=== PATIENT | female | born 2000 | race Caucasian/White ===

== ENCOUNTER 2021-01-03 07:11 | Inpatient (IN) | payer BC ==
[2021-01-03] MEDS ORDERED: hydrALAZINE 20 MG/ML VIAL SLOW IVP PRN ×2 (09:29→22:45)
[2021-01-03] MEDS ORDERED: Ondansetron PF 4 MG/2 ML Vial IVP PRN ×2 (09:29→22:45)
[2021-01-03] MEDS ORDERED: Lidocaine 1% (PF) 30 ML VIAL SC PRN (09:29)
[2021-01-03] MEDS ORDERED: Promethazine HCl 25 MG/ML VIAL IM PRN ×2 (09:29→22:45)
[2021-01-03] MEDS ORDERED: Butorphanol Tartrate 1 MG/ML VIAL SLOW IVP PRN (09:29)
[2021-01-03] MEDS ORDERED: HYDROcodone/Acetaminophen 5/325 mg Tablet PO PRN ×3 (09:29→22:45)
[2021-01-03] MEDS ORDERED: Ibuprofen 800 MG TAB PO PRN (09:29)
[2021-01-03] MEDS ORDERED: NS w/ Oxytocin 30 units 500 ML IV SCH ×2 (09:30→22:45)
[2021-01-03] MEDS ORDERED: Lactated Ringer's 1,000 ML IV SCH (09:30)
[2021-01-03 10:40] LABS: Hemoglobin 11.9 g/dL (12.0-15.5); Mean Corpuscular Hemoglobin 30.2 pg (27.0-33.0); Mean Corpuscular Volume 91.6 fl (81.6-98.3); Mean Platelet Volume 11.6 fl (7.4-10.4); Platelet Count 218 10x3/uL (150-450); RBC Distribution Width 15.9 % (11.5-14.5); Red Blood Cell (RBC) Count 3.94 10x6/uL (3.90-5.03); White Blood Cell (WBC) Count 11.1 10x3/uL (3.5-10.5)
[2021-01-03 10:50] VITALS: BMI 24.6
[2021-01-03 11:28] LABS: Hep B Surf Ag Non-Reactive S/CO (NonReactive); Syphilis Antibody Nonreactive (Nonreactive); Syphilis Antibody Index 0.02 S/CO (<1.00 Non-Reactive)
[2021-01-03 11:36] LABS: HBSAg Index 0.16 S/CO (0-0.99)
[2021-01-03] MEDS ORDERED: Fentanyl 4 mcg/Bup 0.1% Cadd 100 ML ONE (12:12)
[2021-01-03] MEDS: Lactated Ringer's 1,000 ML IV SCH (12:40)
[2021-01-03 21:55] LABS: SARS-CoV-2 PCR by NAA Not Detected (NotDetected)
[2021-01-03] MEDS ORDERED: diphenhydrAMINE 25 MG CAP PO PRN (22:45)
[2021-01-03] MEDS ORDERED: Preparation H Ointment 28 GM TUBE PR PRN (22:45)
[2021-01-03] MEDS ORDERED: Lanolin Ointment 7 GM TUBE TOP PRN (22:45)
[2021-01-03] MEDS ORDERED: Milk Of Magnesia 30 ML UDCUP PO PRN (22:45)
[2021-01-03] MEDS ORDERED: Bisacodyl 10 MG SUPP PR PRN (22:45)
[2021-01-03] MEDS ORDERED: Zolpidem Tartrate 5 MG TAB PO PRN (22:45)
[2021-01-03] MEDS ORDERED: Docusate Calcium (SURFAK) 240 MG CAP PO SCH (23:15)
[2021-01-03] MEDS ORDERED: Ibuprofen 800 MG TAB PO SCH (23:59)
[2021-01-04] MEDS ORDERED: Docusate Calcium (SURFAK) 240 MG CAP PO SCH (05:00)
[2021-01-04] MEDS: Ibuprofen 800 MG TAB PO SCH ×3 (05:27→22:36)
[2021-01-04] MEDS: Lactated Ringer's 1,000 ML IV SCH (07:26)
[2021-01-04 08:02] LABS: Hemoglobin 10.5 g/dL (12.0-15.5)
[2021-01-04] MEDS: Ferrous Sulfate 325 MG TAB PO SCH (08:19)
[2021-01-04] MEDS ORDERED: Adacel (T-DAP) 0.5 ML SYRINGE IM ONE (09:00)
[2021-01-04] MEDS: Docusate Calcium (SURFAK) 240 MG CAP PO SCH ×2 (09:33→22:37)
[2021-01-04] MEDS ORDERED: Bupivacaine 0.25% HCL 30 ML VIAL ONE (09:39)
[2021-01-05] MEDS: Ibuprofen 800 MG TAB PO SCH ×3 (07:00→16:36)
[2021-01-05] MEDS: Ferrous Sulfate 325 MG TAB PO SCH (07:24)
[2021-01-05] MEDS: Docusate Calcium (SURFAK) 240 MG CAP PO SCH (08:46)
[2021-01-05 08:51] VITALS: BP 138/82; TEMP 98.1
== END 2021-01-05 17:47 | disposition home or self-care (01) | DRG 807 ==
LOC: CSHLD/OP 07:11 → CSHLD 08:00 → CSHPED 01-04 01:08 → CSHPP 01-04 18:13
PROVIDERS: ADMIT Obstetrics & Gynecology; ATTEND Obstetrics & Gynecology
PROC: 10E0XZZ Delivery of Products of Conception, External Approach (ICD-10-PCS; principal; 2021-01-03)
PROC: 0HQ9XZZ Repair Perineum Skin, External Approach (ICD-10-PCS; 2021-01-03)
PROC: 10907ZC Drainage of Amniotic Fluid, Therapeutic from Products of Conception, Via Natural or Artificial Opening (ICD-10-PCS; 2021-01-03)
DX: O70.0 First degree perineal laceration during delivery (principal); Z37.0 Single live birth; Z20.822 Contact with and (suspected) exposure to COVID-19; Z3A.40 40 weeks gestation of pregnancy
CPT/HCPCS: 36415; 51702; 85014; 85018; 85027; 86780; 86850; 86900; 86901; 87340; 87635; 99285; J0360; J2001; J2405; J2590; U0003; U0005

== ENCOUNTER 2023-04-20 20:18 | Inpatient (IN) | payer BC ==
[2023-04-20] MEDS ORDERED: Docusate 100 MG CAP PO PRN (20:51)
[2023-04-20] MEDS ORDERED: Ondansetron PF 4 MG/2 ML Vial IVP PRN (20:51)
[2023-04-20] MEDS ORDERED: Methylergonovine 0.2 MG/ML VIAL IM PRN (20:51)
[2023-04-20] MEDS ORDERED: Carboprost 250 MCG/ML AMP IM PRN (20:51)
[2023-04-20] MEDS ORDERED: Tranexamic Acid 1,000 MG/10 ML VIAL IVP PRN (20:51)
[2023-04-20] MEDS ORDERED: Diphenoxylate HCl/Atropine Tablet PO PRN (20:51)
[2023-04-20] MEDS ORDERED: Lidocaine 1% (PF) 30 ML VIAL SC PRN (20:51)
[2023-04-20] MEDS ORDERED: Promethazine HCl 25 MG/ML VIAL IM PRN (20:51)
[2023-04-20] MEDS ORDERED: hydrALAZINE 20 MG/ML VIAL SLOW IVP PRN ×2 (20:51→21:28)
[2023-04-20] MEDS ORDERED: Misoprostol 200 MCG TAB PR PRN (20:51)
[2023-04-20] MEDS ORDERED: fentaNYL/Ropivacaine Epidural 100 ML ONE (20:58)
[2023-04-20] MEDS ORDERED: NS w/ Oxytocin 30 units 500 ML IV SCH (21:00)
[2023-04-20] MEDS ORDERED: Lactated Ringer's 1,000 ML IV SCH (21:00)
[2023-04-20 21:19] LABS: Hematocrit 36.7 % (34.9-44.5); Hemoglobin 12.5 g/dL (12.0-15.5); Mean Corpuscular HGB CONC 34.1 g/dL (32.0-36.0); Mean Corpuscular Volume 88.2 fl (81.6-98.3); Mean Platelet Volume 11.2 fl (7.4-10.4); Platelet Count 244 10x3/uL (150-450); RBC Distribution Width 12.5 % (11.5-14.5); Red Blood Cell (RBC) Count 4.16 10x6/uL (3.90-5.03); White Blood Cell (WBC) Count 12.1 10x3/uL (3.5-10.5)
[2023-04-20] MEDS ORDERED: Bisacodyl 10 MG SUPP PR PRN (21:28)
[2023-04-20] MEDS ORDERED: Milk Of Magnesia 30 ML UDCUP PO PRN (21:28)
[2023-04-20] MEDS ORDERED: Boostrix 0.5 ML (Tdap) VIAL (>/=7 yrs of age) IM ONE (21:28)
[2023-04-20 21:37] LABS: Syphilis Antibody Nonreactive (Nonreactive); Syphilis Antibody Index 0.03 S/CO (<1.00 Non-Reactive)
[2023-04-20 21:38] LABS: HBSAg Index 0.13 S/CO (0-0.99); Hep B Surf Ag - L&D Non-Reactive S/CO (NonReactive)
[2023-04-20 23:34] VITALS: BMI 23.3
[2023-04-21] MEDS ORDERED: Acetaminophen 325 MG TAB PO PRN (02:07)
[2023-04-21 03:57] LABS: #Monocytes 1.2 10x3/uL (0.0-1.1); #Neutrophils 12.5 10x3/uL (1.5-8.4); %Basophils 0.1 % (0.0-2.0); %Lymphocytes 12.9 % (18.0-47.0); %Monocytes 7.3 % (0.0-10.0); %Neutrophils 79.1 % (40.0-75.0); Hematocrit 33.4 % (34.9-44.5); Hemoglobin 11.4 g/dL (12.0-15.5); Mean Corpuscular HGB CONC 34.1 g/dL (32.0-36.0); Mean Corpuscular Hemoglobin 30.8 pg (27.0-33.0); Mean Corpuscular Volume 90.3 fl (81.6-98.3); Mean Platelet Volume 11.4 fl (7.4-10.4); Platelet Count 198 10x3/uL (150-450); RBC Distribution Width 12.5 % (11.5-14.5); White Blood Cell (WBC) Count 15.8 10x3/uL (3.5-10.5)
[2023-04-21] MEDS: Ibuprofen 800 MG TAB PO SCH ×4 (06:02→22:20)
[2023-04-21] MEDS: Ferrous Sulfate 325 MG TAB PO SCH (07:38)
[2023-04-21] MEDS: Docusate 100 MG CAP PO SCH ×2 (08:57→22:20)
[2023-04-22] MEDS: Ibuprofen 800 MG TAB PO SCH (05:24)
[2023-04-22] MEDS: Docusate 100 MG CAP PO SCH (08:33)
[2023-04-22] MEDS: Ferrous Sulfate 325 MG TAB PO SCH (08:41)
[2023-04-22 09:12] VITALS: BP 117/72; TEMP 97.9
== END 2023-04-22 12:15 | disposition home or self-care (01) | DRG 807 ==
LOC: CSHLD/OP 20:18 → CSHLD 20:48 → CSHPP 04-21 00:26
PROVIDERS: ADMIT Obstetrics & Gynecology; ATTEND Obstetrics & Gynecology
PROC: 10E0XZZ Delivery of Products of Conception, External Approach (ICD-10-PCS; principal; 2023-04-20)
DX: O42.02 Full-term premature rupture of membranes, onset of labor within 24 hours of rupture (principal); Z37.0 Single live birth; Z3A.39 39 weeks gestation of pregnancy; O77.0 Labor and delivery complicated by meconium in amniotic fluid; O99.814 Abnormal glucose complicating childbirth; R73.02 Impaired glucose tolerance (oral); Z88.1 Allergy status to other antibiotic agents; O76 Abnormality in fetal heart rate and rhythm complicating labor and delivery; O62.3 Precipitate labor
CPT/HCPCS: 36415; 85025; 85027; 86780; 86850; 86900; 86901; 87340; 99285